=== PATIENT | female | born 1985 | race Hispanic/Latino ===

== ENCOUNTER 2020-10-17 00:09 | Emergency (ER) | payer OTHER ==
[~2020-10-17] VITALS: Ht 165.1 cm; Wt 113.4 kg
[2020-10-17 00:24] VITALS: BP 178/112
[2020-10-17 01:06] LABS: APPEARANCE,URINE Cloudy (CLEAR); BILIRUBIN,URINE Negative (NEGATIVE); COLOR,URINE Yellow (YELLOW); GLUCOSE, URINE (UA) Negative (NEGATIVE); KETONES,URINE 40 mg/dL (NEGATIVE); LEUKOCYTE ESTERASE ,URINE Negative (NEGATIVE); NITRATE,URINE Negative (NEGATIVE); OCCULT BLOOD,URINE Negative (NEGATIVE); PROTEIN,URINE Trace mg/dL (NEGATIVE)
[2020-10-17 01:21] LABS: BACTERIA,URINE Few /HPF (None Seen); RBC,URINE 0-1 /HPF (0-1); WBC,URINE 0-1 /HPF (0-1)
[2020-10-17 01:33] VITALS: BP 151/91
[2020-10-17 02:27] VITALS: BP 146/84
[2020-10-17] MEDS ORDERED: ACETAMINOPHEN 500 MG TABLET PO SCH (03:00)
[2020-10-17] MEDS ORDERED: LISINOPRIL 10 MG TABLET PO SCH (03:00)
[2020-10-17] MEDS ORDERED: ACETAMINOPHEN 500 MG TABLET ONE (03:13)
[2020-10-17] MEDS ORDERED: LISINOPRIL 5 MG TABLET ONE (03:13)
[2020-10-17 03:23] LABS: BASOPHILS % (AUTO) 0.3 % (0.0-5.0); EOSINOPHILS % (AUTO) 0.8 % (0.0-8.0); HEMATOCRIT 38.7 % (36-48); LYMPHOCYTES % (AUTO) 33.9 % (21.0-51.0); MEAN CORPUSCULAR HEMOGLOBIN 29.9 pg (27.0-33.0); MEAN CORPUSCULAR HGB CONC 33.3 g/dL (32.0-36.0); MEAN CORPUSCULAR VOLUME 89.6 fL (79-99); MONOCYTES % (AUTO) 6.9 % (3.0-13.0); NEUTROPHILS % (AUTO) 57.9 % (40.0-77.0); PLATELET COUNT (AUTO) 421 K/uL (130-400); RED BLOOD CELL COUNT(AUTO) 4.32 MIL/uL (4.00-5.50); RED CELL DISTRIBUTION WIDTH 12.2 % (11.0-15.5); WHITE BLOOD COUNT (AUTO) 6.4 K/uL (4.8-10.8)
[2020-10-17 03:31] LABS: CREATININE 0.9 mg/dL (0.5-1.5)
[2020-10-17] MEDS ORDERED: HYDR25TA PO (03:43)
[2020-10-17 04:11] VITALS: BP 143/86
== END 2020-10-17 04:19 | disposition home or self-care (01) ==
LOC: EDH 00:25
DX: I10 Essential (primary) hypertension (principal); Z79.899 Other long term (current) drug therapy
CPT/HCPCS: 36415; 80048; 81001; 85025